=== PATIENT | female | born 1980 | race Hispanic/Latino ===

== ENCOUNTER 2019-05-30 07:26 | Emergency (ER) | payer MEDICAID, OTHER | END 2019-05-30 07:57 | disposition home or self-care (01) | LOC: EDH 07:26 | DX: R10.9 Unspecified abdominal pain (principal); R03.0 Elevated blood-pressure reading, without diagnosis of hypertension; Z98.890 Other specified postprocedural states; Z88.2 Allergy status to sulfonamides; Z88.5 Allergy status to narcotic agent | CPT/HCPCS: 99281 ==

== ENCOUNTER 2020-07-05 05:30 | Observation (INO) | payer OTHER ==
[2020-07-04 12:25] LABS: BASOPHILS % (AUTO) 0.8 % (0.0-5.0); EOSINOPHILS % (AUTO) 1.3 % (0.0-8.0); HEMATOCRIT 35.1 % (36-48); LYMPHOCYTES % (AUTO) 35.7 % (21.0-51.0); MEAN CORPUSCULAR HEMOGLOBIN 28.8 pg (27.0-33.0); MEAN CORPUSCULAR HGB CONC 32.5 g/dL (32.0-36.0); MEAN CORPUSCULAR VOLUME 88.6 fL (79-99); MONOCYTES % (AUTO) 6.8 % (3.0-13.0); NEUTROPHILS % (AUTO) 55.1 % (40.0-77.0); PLATELET COUNT (AUTO) 332 K/uL (130-400); RED BLOOD CELL COUNT(AUTO) 3.96 MIL/uL (4.00-5.50); WHITE BLOOD COUNT (AUTO) 6.2 K/uL (4.8-10.8)
[2020-07-04 14:40] VITALS: BP 144/82
[~2020-07-05] VITALS: Ht 170.2 cm; Wt 79.3 kg
[2020-07-05] VITALS (22 sets, daily range): BP systolic 110–138; BP diastolic 50–77
[2020-07-05] MEDS ORDERED: SCOPOLAMINE HYDROBROMIDE 1 EACH ADH..PATCH TD ONE (06:50)
[2020-07-05] MEDS ORDERED: LACTATED RINGERS 1000ML 1,000 ML IV ONE (07:47)
[2020-07-05] MEDS: CEFAZOLIN SODIUM 1 GM VIAL ONE ×2 (08:05→08:32)
[2020-07-05] MEDS ORDERED: ONDANSETRON HCL 4 MG/2 ML VIAL ONE (08:06)
[2020-07-05] MEDS ORDERED: SUCCINYLCHOLINE CHLORIDE 20 MG/ML 10 ML VIAL ONE (08:06)
[2020-07-05] MEDS ORDERED: LIDOCAINE PF 2% 5ML ABBOJECT ONE (08:06)
[2020-07-05] MEDS ORDERED: PROPOFOL 10 MG/ML 20ML VIAL IV ONE (08:07)
[2020-07-05] MEDS ORDERED: GLYCOPYRROLATE 1 MG/5 ML SYRINGE ONE ×2 (08:07→10:36)
[2020-07-05] MEDS ORDERED: MIDAZOLAM HCL 1 MG/ML 2ML VIAL ONE (08:07)
[2020-07-05] MEDS ORDERED: NEOSTIGMINE 5MG/5ML SYR IV ONE (08:07)
[2020-07-05] MEDS ORDERED: DEXAMETHASONE SOD PHOSPHATE 10MG/ML 1ML VIAL ONE (08:07)
[2020-07-05] MEDS ORDERED: MEPERIDINE-PF 25 MG/ML SYG ONE ×3 (08:08→10:49)
[2020-07-05] MEDS ORDERED: FENTANYL CITRATE PF 50 MCG/1 ML 2ML VIAL ONE ×2 (08:08→09:55)
[2020-07-05] MEDS ORDERED: BISACODYL 10 MG SUPP.RECT RC PRN (11:30)
[2020-07-05] MEDS ORDERED: MEPERIDINE-PF 75 MG/ML SYG IM PRN (11:30)
[2020-07-05] MEDS ORDERED: PROMETHAZINE HCL 25 MG/ML 1ML AMPULE IM PRN ×2 (11:30)
[2020-07-05] MEDS ORDERED: ONDANSETRON HCL 4 MG/2 ML VIAL IVP PRN (11:30)
[2020-07-05] MEDS: SIMETHICONE 80 MG TAB.CHEW PO PRN ×2 (12:24→21:37)
[2020-07-05] MEDS: DEXTROSE 5 %-0.45 % NACL 1,000 ML IV PRN ×2 (12:26→21:38)
[2020-07-05] MEDS: ACETAMINOPHEN-CODEINE 300/30MG TAB PO PRN ×3 (12:26→19:34)
[2020-07-05] MEDS ORDERED: MEPERIDINE HCL/PF 25 MG/0.5 ML AMPUL IM ONE (14:15)
[2020-07-05] MEDS: DOCUSATE SODIUM 100 MG CAP PO PRN (21:37)
[2020-07-05] MEDS ORDERED: PRAV40TA PO (22:48)
[2020-07-05] MEDS ORDERED: MULT-660 PO (22:48)
[2020-07-06 02:30] VITALS: BP 122/59
[2020-07-06 05:19] LABS: HEMATOCRIT 28.2 % (36-48); MEAN CORPUSCULAR HEMOGLOBIN 28.1 pg (27.0-33.0); MEAN CORPUSCULAR HGB CONC 31.6 g/dL (32.0-36.0); RED BLOOD CELL COUNT(AUTO) 3.17 MIL/uL (4.00-5.50); WHITE BLOOD COUNT (AUTO) 11.1 K/uL (4.8-10.8)
[2020-07-06] MEDS: DEXTROSE 5 %-0.45 % NACL 1,000 ML IV PRN (05:32)
[2020-07-06 07:32] VITALS: BP 121/70
[2020-07-06] MEDS: SIMETHICONE 80 MG TAB.CHEW PO PRN (09:16)
[2020-07-06] MEDS: DOCUSATE SODIUM 100 MG CAP PO PRN (09:16)
[2020-07-06] MEDS: IBUPROFEN 600 MG TABLET PO PRN ×2 (09:17)
[2020-07-06 11:17] VITALS: BP 120/71
== END 2020-07-06 13:25 | disposition home or self-care (01) ==
LOC: DAHIP 05:30 → EDSTATUS 09:47 → WSH 11:20
PROVIDERS: ADMIT Obstetrics & Gynecology; ATTEND Obstetrics & Gynecology
DX: D25.9 Leiomyoma of uterus, unspecified (principal); Z20.828 Contact with and (suspected) exposure to other viral communicable diseases; N92.1 Excessive and frequent menstruation with irregular cycle; K46.9 Unspecified abdominal hernia without obstruction or gangrene; D50.9 Iron deficiency anemia, unspecified; N94.6 Dysmenorrhea, unspecified; N83.202 Unspecified ovarian cyst, left side; E78.5 Hyperlipidemia, unspecified; F32.9 Major depressive disorder, single episode, unspecified; Z90.49 Acquired absence of other specified parts of digestive tract; Z98.51 Tubal ligation status; Z79.899 Other long term (current) drug therapy; Z88.2 Allergy status to sulfonamides
CPT/HCPCS: 36415 ×2; 57268; 58552; 85025; 85027; 86850; 86900; 86901; 96360; 96361 ×2; A4215 ×2; A4221; A4222; A4223; A4344; A4351; A4354; A4510; A4600; A4615; A4649 ×3; A4663; A4930 ×2; A6260; C1769 ×2; G0378 ×30; J0330; J0690; J1100; J2001; J2175 ×3; J2250; J2405; J2704; J2710; J3010 ×2; J3490 ×2; J7030; J7120; U0003

== ENCOUNTER → 2022-08-16 | Outpatient (CLI) | payer OTHER ==
[~2022-08-16] MED LIST: MULT-660 PO; PRAV40TA PO
== END | disposition home or self-care (01) ==
LOC: RAH 13:41
PROVIDERS: ATTEND Otolaryngology Plastic Surgery within the Head & Neck
DX: I88.9 Nonspecific lymphadenitis, unspecified (principal)
CPT/HCPCS: 76536